=== PATIENT | male | born 2000 | race Caucasian/White ===

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

== ENCOUNTER 2024-08-14 12:33 | Emergency (ER) | payer OTHER, SELFPAY ==
[2024-08-14 13:05] VITALS: BP 123/75; PULSE 87; RESP 20; TEMP 36.6; O2SAT 100; BMI 17.8
--- NOTE | 2024-08-14 13:43 | ED_ITS ---
Discharge Plan Disposition Patient Disposition: Home, Self-Care Condition: Good Prescriptions Prescriptions: New methylprednisolone 4 mg Tablets,Dose Pack 4 mg PO DIRECTED 6 Days Qty: 21 0RF Rx Instructions: Take 1 pack as directed for 6 days ilvhehqfvwgfrwm-hpzgalbjk-RK [Bromfed DM] 2-30-10 mg/5 mL Syrup 5 ml PO Q6H PRN (Reason: Cough) Qty: 240 0RF cefdinir 300 mg capsule 300 mg PO BID Qty: 20 0RF ofloxacin 0.3 % drops 1 drp ophthalmic (eye) Q2H Qty: 5 0RF Rx Instructions: 1 gtt in left eye q2h x2 days, then 1 gtt qid x5 days Referrals Follow up/Referrals: Pooja eBnitez [Primary Care Provider] - See instructions Activity Restrictions/Add. Instructions Additional Instructions/Restrictions: Drink plenty of fluids. Take tylenol or ibuprofen for pain or fever. Take the medications as directed. Follow up with your regular doctor. GO TO THE ER FOR ANY WORSENING SYMPTOMS Use the eye drops as directed. Strict hand washing in the house hold, because conjunctivitis is very contagious. Follow up with your regular doctor. GO TO THE ER FOR ANY WORSENING SYMPTOMS OR CONCERNS Clinical Impressions Clinical Impression: Conjunctivitis of left eye, Pharyngitis Instructions Patient Instructions: How to Put in Eye Drops Print Language Print Language: Nauruan Discharge ED Provider: Arvind Quiros [facility] General Stated complaint: swelling, redness to left eye Mode of Arrival: Ambulatory Source of Information: Patient Limitations: No Limitations Time Seen by Provider: 08/14/24 13:43 Description of Symptoms (Recalled from Triage Doc. by RN): PATIENT C/O REDNESS, SWELLING, AND ITCHING TO LEFT EYE X 2 DAYS HEENT Symptoms (Recalled from RN notes): Yes Resp Symptoms (Recalled from RN notes): No Skin Symptoms (Recalled from RN notes): No MS Symptoms (Recalled from RN notes): No Functional Status (Recalled from RN notes): WNL Related Data Previous Rx's ?Medication ?Instructions ?Recorded xtltpbtiummictz-gmchgmehorrcuze-WF 5 ml PO Q6H PRN Cough #240 mL 08/14/24 2 mg-30 mg-10 mg/5 mL oral syrup (Bromfed DM) cefdinir 300 mg capsule 300 mg PO BID #20 caps 08/14/24 methylprednisolone 4 mg tablets in 4 mg PO DIRECTED 6 days #21 tabs 08/14/24 a dose pack ofloxacin 0.3 % eye drops 1 drp ophthalmic (eye) Q2H #5 mL 08/14/24 Allergies Allergy/AdvReac Type Severity Reaction Status Date / Time amoxicillin Allergy Intermediate Hives Verified 06/09/19 12:32 Penicillins (PENICILLINS) Allergy Mild Verified 06/09/19 12:32 sulfamethoxazole (From Allergy Verified 06/09/19 12:32 Bactrim) trimethoprim (From Bactrim) Allergy Verified 06/09/19 12:32 Worker's Comp Is this a Worker's Comp case?: No [facility] Disclaimer: The information contained in this section may have been updated after the patient was seen, as this information can be updated by other users. Medical History (Updated 08/14/24 @ 13:54 by Arvind Quiros APRN) No significant past medical history Social History Smoking Status: Light tobacco smoker tobacco type: smokeless tobacco second hand exposure: No alcohol intake: never substance use type: unknown current occupational status: employed Travel in the last 8 weeks: None household members: family housing: house current occupational exposures/hazards: Yes caffeine: No ROS Obtained: Yes All systems reviewed & no additional complaints except as documented Constitutional Constitutional: Reports chills and Reports fever(s) Eyes Eyes: Denies eye discharge ENT Ears, Nose, Mouth, and Throat: Reports as per HPI Cardiovascular Cardiovascular: Denies chest pain Respiratory Respiratory: Denies chest congestion and Reports cough Gastrointestinal Gastrointestingal: Reports nausea; Denies abdominal pain, constipation, cramping, diarrhea or vomiting Musculoskeletal Musculoskeletal: Denies arthralgias Integumentary/Breasts Skin/Breast: Denies rash Neurologic Neurologic: Denies paresthesias Physical Exam General General appearance: alert and in no apparent distress Head Head exam: atraumatic, normocephalic and normal inspection Eye Eye exam: Present normal appearance, PERRL and EOMI ENT ENT exam: Present mucous membranes moist and normal external ear exam Expanded ENT Exam TM/Canal exam: Bilateral TM: erythema and bulging Nose exam: Absent sinus tenderness Mouth exam: Present normal external inspection; Absent drooling Teeth exam: Present normal inspection Throat exam: Present tonsillar erythema, tonsillomegaly and tonsillar exudate Neck Neck exam: Present normal inspection, full ROM and trachea midline; Absent tenderness, meningismus or lymphadenopathy Chest Chest inspection: Present normal inspection and symmetric chest wall rise; Absent tenderness Respiratory Respiratory exam: Present normal lung sounds bilaterally; Absent respiratory distress, wheezes or stridor Cardiovascular Cardiovascular exam: Present regular rate and normal rhythm; Absent systolic murmur or diastolic murmur Abdominal Exam Abdominal exam: Present soft and normal bowel sounds; Absent distention, tenderness, guarding, rebound or rigidity Extremities Exam Extremities exam: Present normal inspection and normal capillary refill; Absent calf tenderness Back Exam Back exam: Present normal inspection and full ROM; Absent tenderness, CVA tenderness (R) or CVA tenderness (L) Neurological Exam Neurological exam: Present alert, oriented X3 and CN II-XII intact Psychiatric Psychiatric exam: Present normal affect and normal mood Skin Skin exam: Present warm, dry, intact and normal color Medical Decision Making Medical Records Medical records reviewed: No I reviewed the patient's medical records. Screening: Per USPSTF and CDC recommendations, given the prevalence of disease in our region, it is our hospital?s policy to screen for HIV and viral Hepatitis for all patients aged 18 and over and those with ongoing risk factors. Crow Inquiry Pt receiving controlled substance: No Vital Signs: 08/14/24 13:05 Temperature 97.9 F Temperature Source Oral Pulse Rate [Left Brachial] 87 Respiratory Rate 20 Blood Pressure [Left Arm] 123/75 Blood Pressure Mean [Left Arm] 91 Blood Pressure Source [Left Arm] Automatic Cuff Blood Pressure Position [Left Arm] Sitting 02 Sat by Pulse Oximetry 100 Oxygen Delivery Method Room Air
[2024-08-14 14:01] VITALS: BP 123/75; PULSE 87; RESP 20; TEMP 36.6; O2SAT 100
== END 2024-08-14 14:02 | disposition home or self-care (01) ==
PROVIDERS: Emergency Provider Nurse Practitioner Family; PCP Nurse Practitioner Family
DX: J02.9 Acute pharyngitis, unspecified (principal); H10.32 Unspecified acute conjunctivitis, left eye
CPT/HCPCS: 99213; G0381

== ENCOUNTER 2024-09-23 20:08 | Emergency (ER) | payer OTHER, SELFPAY ==
[2024-09-23 20:09] VITALS: BP 124/79; PULSE 66; RESP 18; TEMP 36.6; O2SAT 100; BMI 19.2
--- NOTE | 2024-09-23 20:39 | ED_ITS ---
<Statement entered by Venice Marcelo DO - 09/23/24 22:11> I was consulted by the MARK, and we discussed the complexity of the problems being addressed. I approved the treatment and management plan for this patient's care in the emergency department, thus performing a substantive portion of the medical decision making. Venice Marcelo DO Discharge Plan Disposition Patient Disposition: Home, Self-Care Condition: Good Prescriptions Prescriptions: New cephalexin 500 mg capsule 500 mg PO BID 7 Days Qty: 14 0RF No Action methylprednisolone 4 mg Tablets,Dose Pack 4 mg PO DIRECTED 6 Days Qty: 21 0RF Rx Instructions: Take 1 pack as directed for 6 days ahvpfwkzdoonrnm-bdhihdlmk-KT [Bromfed DM] 2-30-10 mg/5 mL Syrup 5 ml PO Q6H PRN (Reason: Cough) Qty: 240 0RF cefdinir 300 mg capsule 300 mg PO BID Qty: 20 0RF ofloxacin 0.3 % drops 1 drp ophthalmic (eye) Q2H Qty: 5 0RF Rx Instructions: 1 gtt in left eye q2h x2 days, then 1 gtt qid x5 days Referrals Follow up/Referrals: Pooja Benitez [Primary Care Provider] - See instructions Activity Restrictions/Add. Instructions Additional Instructions/Restrictions: Please keep your repair clean dry and covered but with a nonocclusive dressing. You may wash with soap and water and pat the Steri-Strips dry. They should follow-up in 7 to 10 days. Return for any increasing redness drainage swelling or pain. Clinical Impressions Clinical Impression: Laceration Instructions Patient Instructions: DI for Laceration Repair Print Language Print Language: Romansh Discharge ED Provider: Venice Marcelo General Adult HPI General Chief complaint: Wound/Laceration Stated complaint: AO 09-23 metal can cut on right hand Time Seen by Provider: 09/23/24 20:32 Mode of Arrival: Ambulatory Source of Information: Patient Limitations: No Limitations Description of Symptoms (Recalled from ER Triage Doc. by RN): Pt presents to ED for a lac to R hand. Pt states he cut it on a peaches can. Pt is not bleeding at this time. Pt states he has no pain. Pt is A&O*4 and is bedside. History of Present Illness HPI narrative: Patient presents for a superficial laceration to the thenar eminence of his right hand. Patient was opening a can of peaches and the lid cut his right hand. He denies any numbness tingling loss of motor or sensory has full range of motion. His tetanus is up-to-date. Related Data Previous Rx's ?Medication ?Instructions ?Recorded eopxaraithwbnup-pjnbhrbdxnbafte-TX 5 ml PO Q6H PRN Cough #240 mL 08/14/24 2 mg-30 mg-10 mg/5 mL oral syrup (Bromfed DM) cefdinir 300 mg capsule 300 mg PO BID #20 caps 08/14/24 methylprednisolone 4 mg tablets in 4 mg PO DIRECTED 6 days #21 tabs 08/14/24 a dose pack ofloxacin 0.3 % eye drops 1 drp ophthalmic (eye) Q2H #5 mL 08/14/24 cephalexin 500 mg capsule 500 mg PO BID 7 days #14 caps 09/23/24 Allergies Allergy/AdvReac Type Severity Reaction Status Date / Time amoxicillin Allergy Intermediate Hives Verified 06/09/19 12:32 Penicillins (PENICILLINS) Allergy Mild Verified 06/09/19 12:32 sulfamethoxazole (From Allergy Verified 06/09/19 12:32 Bactrim) trimethoprim (From Bactrim) Allergy Verified 06/09/19 12:32 [facility] Disclaimer: The information contained in this section may have been updated after the patient was seen, as this information can be updated by other users. Medical History (Updated 09/23/24 @ 20:39 by LILLIAN Miller) No significant past medical history Social History Smoking Status: Unknown if ever smoked second hand exposure: No alcohol intake: never substance use type: unknown current occupational status: employed Travel in the last 8 weeks: None household members: family housing: house current occupational exposures/hazards: Yes caffeine: No Have you lived/traveled outside [place] in past 30 days?: No Contact w/someone who lives/traveled outside [place] past 30 days?: No Exposure to someone with infectious disease in past 14 days?: No Do you have a fever (greater than 100.4 F or 38 C)?: No Have you tested positive for COVID-19: No Exposed to someone with COVID-19 in past 14 days?: No Do you have a sore throat?: No Do you have a cough?: No Do you have any weakness?: No Do you have any diarrhea?: No Are you experiencing any unusual bleeding?: No Do you have any muscle aches/pain?: No Do you have any abdominal pain?: No Are you experiencing loss of taste or smell?: No Other Medical History Have you received the Flu Vaccine for this season: No Have you received the Pneumonia Vaccine: No ROS Obtained: Yes Systems reviewed as appropriate & no additional complaints except as documented Physical Exam General General appearance: alert and in no apparent distress Respiratory Respiratory exam: Present normal lung sounds bilaterally Cardiovascular Cardiovascular exam: Present regular rate Neurological Exam Neurological exam: Present alert and oriented X3 Medical Decision Making Medical Records Screening: Per USPSTF and CDC recommendations, given the prevalence of disease in our region, it is our hospital?s policy to screen for HIV and viral Hepatitis for all patients aged 18 and over and those with ongoing risk factors. Crow Inquiry Pt receiving controlled substance: No Vital Signs: 09/23/24 20:09 Temperature 97.9 F Temperature Source Oral Pulse Rate [Left] 66 Respiratory Rate 18 Blood Pressure [Right Arm] 124/79 Blood Pressure Mean [Right Arm] 94 02 Sat by Pulse Oximetry 100 Oxygen Delivery Method Room Air Medical Decision Narrative: In summary patient is a 43-year-old male who presents to the emergency department for evaluation of left hand laceration. Patient is hemodynamically stable upon arrival, afebrile. Physical exam is remarkable for a very superficial 2-1/2 cm laceration to the thenar eminence of his right hand. 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 Differential diagnosis considered including muscle injury complex laceration versus superficial however there are no red flags assessed just anything other than a superficial laceration. Initial workup with imaging was considered however patient has no deep structures involved after initial divan so deferred. Patient took Tylenol Motrin at home and is up-to-date on his tetanus therefore no initial interventions are required. Wound was repaired with Steri-Strips and Dermabond. Patient given a prescription for Keflex sent to his pharmacy. Patient given strict return precautions. Patient is appropriate discharge. Procedures Laceration Laceration 1: Site: hand Side (If applicable): right (Thenar eminence) Size (cm): 2.5 Description: linear Depth: simple, single layer Pre-repair: wound explored and deep structures intact Skin layer closed with: Dermabond and other (Steri-Strips) Critical Care Critical Care Time Critical Care Time: No
[2024-09-23 20:43] VITALS: BP 111/70; PULSE 60; RESP 16; TEMP 36.8; O2SAT 98
== END 2024-09-23 20:45 | disposition home or self-care (01) ==
PROVIDERS: Emergency Provider Emergency Medicine; PCP Nurse Practitioner Family
DX: S61.411A Laceration without foreign body of right hand, initial encounter (principal); M79.641 Pain in right hand; W26.8XXA Contact with other sharp object(s), not elsewhere classified, initial encounter; Y93.89 Activity, other specified; Y92.009 Unspecified place in unspecified non-institutional (private) residence as the place of occurrence of the external cause
CPT/HCPCS: 99283